=== PATIENT | female | born 1930 | race Hispanic/Latino ===

== ENCOUNTER 2017-03-04 13:02 | Emergency (ER) | payer MEDICARE ==
[2017-03-04 13:11] VITALS: TEMP 98
[2017-03-04 13:20] VITALS: RESP 14
--- NOTE | 2017-03-04 13:43 | ED PDOC ---
HPI: Hypertension/Hypotension Time Seen by Provider: 03/04/17 13:31 Chief Complaint (Nursing): High Blood Pressure Chief Complaint (Provider): high blood pressure History Per: Patient History/Exam Limitations: no limitations Onset/Duration Of Symptoms: Days Additional Complaint(s): Pt. with right hip for 1 week. Pain only on walking and putting weight on leg. Pt. pain free on lying down. Pt. had same 3 weeks ago along with dysuria, increased frequency and urgency of urination. She was given macrobid and dc. She felt better after and all symptoms went away. The hip pain has now returned. Pt. went to the urgent care clinic and they said her BP was high so they couldn't see her, sent to the ED. Pt. has no abd pain, numbness, tingles, back pain, weakness, headaches, dizziness, chest pain, dyspnea. No nausea, vomit, diarrhea. No injury. Past Medical History Reviewed: Nursing Documentation, Vital Signs Vital Signs: Last Vital Signs Temp 98 F 03/04/17 13:08 Pulse 68 03/04/17 13:20 Resp 14 03/04/17 13:20 BP 193/89 H 03/04/17 13:20 Pulse Ox 99 03/04/17 13:20 - Medical History PMH: HTN - Surgical History Surgical History: Tonsillectomy - Family History Family History: States: Unknown Family Hx - Living Arrangements Living Arrangements: With Family - Social History Current smoker - smoking cessation education provided: No Alcohol: None Drugs: Denies - Immunization History Hx Tetanus Toxoid Vaccination: No Hx Influenza Vaccination: No Hx Pneumococcal Vaccination: No - Home Medications Home Medications: Ambulatory Orders Medication Instructions Recorded Propranolol [Inderal] 40 mg PO DAILY 03/04/17 - Allergies Allergies/Adverse Reactions: Allergies Allergy/AdvReac Type Severity Reaction Status Date / Time Penicillins Allergy RASH Verified 03/04/17 13:07 Sulfa (Sulfonamide Allergy RASH Verified 03/04/17 13:07 Antibiotics) Review of Systems ROS Statement: Except As Marked, All Systems Reviewed And Found Negative Musculoskeletal: Positive for: Leg Pain Physical Exam - Reviewed Nursing Documentation Reviewed: Yes Vital Signs Reviewed: Yes - Physical Exam Appears: Positive for: Non-toxic, No Acute Distress Head Exam: Positive for: ATRAUMATIC, NORMAL INSPECTION, NORMOCEPHALIC Skin: Positive for: Normal Color, Warm, DRY Eye Exam: Positive for: EOMI, Normal appearance, PERRL ENT: Positive for: Normal ENT Inspection Neck: Positive for: Normal, Painless ROM Cardiovascular/Chest: Positive for: Regular Rate, Rhythm Respiratory: Positive for: CNT, Normal Breath Sounds Gastrointestinal/Abdominal: Positive for: Normal Exam, Bowel Sounds, Soft. Negative for: Tenderness Back: Positive for: Normal Inspection. Negative for: L CVA Tenderness, R CVA Tenderness Extremity: Positive for: Normal ROM (except mild pain on R hip external rotation ). Negative for: Tenderness, Pedal Edema, Calf Tenderness, Capillary Refill, Deformity, Swelling Neurologic/Psych: Positive for: Alert, Oriented. Negative for: Motor/Sensory Deficits (5/5 strength all extremities) - Laboratory Results Result Diagrams: 03/04/17 14:15 03/04/17 14:15 Interpretation Of Abn Labs: no acute - ECG ECG: Positive for: Interpreted By Me, Viewed By Me Interpretation Of Abn EKG: LVH; sinus O2 Sat by Pulse Oximetry: 99 Pulse Ox Interpretation: Normal - Radiology X-Ray: Interpreted by Me, Viewed By Me X-Ray Interpretation: No Acute Disease - Progress ED Course And Treament: 1456: Stable. AAOx3. BP improvement. Known high blood pressure with no symptoms. Fu with your pcp for further bp management. Ambulated with no issues. Tolerated PO. No dizziness. Disposition - Clinical Impression Clinical Impression: Chronic hypertension, Hip pain - Patient ED Disposition Is Patient to be Admitted: No - Disposition Referrals: [facility] [Outside] - 03/05/17 Disposition: Routine/Home Disposition Time: 15:01 Condition: STABLE Additional Instructions: Return if not better in 3 days. Instructions: Hip Pain (ED), Chronic Hypertension (ED) Forms: [employer] (Macedonian)
[2017-03-04 14:32] LABS: BASO # 0.1 K/uL (0.0-0.2); BASO % 1.3 % (0.0-2.0); EOS # 0.1 K/uL (0.0-0.7); EOS % 1.1 % (0.0-4.0); HEMATOCRIT 46.6 % (34.0-47.0); LYMPH % 26.8 % (20.0-40.0); MEAN CELL VOLUME 91.4 fl (81.0-99.0); MEAN CORPUSCULAR HEMOGLOBIN 30.1 pg (27.0-31.0); MEAN CORPUSCULAR HGB CONC 32.9 g/dL (33.0-37.0); MEAN PLATELET VOLUME 8.4 fl (7.2-11.7); MONO # 0.6 K/uL (0.0-0.8); MONO % 8.4 % (0.0-10.0); NEUT # 4.7 K/uL (1.8-7.0); NEUT % 62.4 % (50.0-75.0); NRBC % 0.2 % (0.0-0.0); RED CELL DISTRIBUTION WIDTH 13.9 % (11.5-14.5); WHITE BLOOD COUNT 7.6 K/uL (4.8-10.8)
[2017-03-04 14:45] LABS: ALB/GLOB RATIO 1.4 (1.0-2.1); ALKALINE PHOSPHATASE 64 U/L (38-126); ALT/SGPT 33 U/L (9-52); AST/SGOT 34 U/L (14-36); BILIRUBIN,TOTAL 0.6 mg/dl (0.2-1.3); BLOOD UREA NITROGEN 7 mg/dl (7-17); CALCIUM 9.4 mg/dL (8.4-10.2); CARBON DIOXIDE 25 mmol/L (22-30); CHLORIDE 105 mmol/L (98-107); GFR AFRICAN-AMERICAN > 60; GLUCOSE,RANDOM 96 mg/dL (65-105); SODIUM 138 mmol/l (132-148); TOTAL PROTEIN 6.8 G/DL (6.3-8.2)
[2017-03-04 14:56] VITALS: O2SAT 99
[2017-03-04 15:14] VITALS: BP 171/71; PULSE 74
--- NOTE | 2017-03-04 16:27 | RAD ---
Indication: Pain Right hip with pelvis Comparison: None available Findings: Partially imaged severe scoliosis of the lumbar spine convex to the right. No acute displaced fracture or dislocation identified. Sacroiliac joints appear intact. Mild constipation. Soft tissues appear unremarkable. No evidence of radiopaque foreign body. Impression: No acute displaced fracture or dislocation evident. If high clinical index of suspicion, suggest cross-sectional imaging for further evaluation. Otherwise, if symptoms persist or if there is continued clinical concern, x-ray follow-up in 7-10 days should be considered.
--- NOTE | 2017-03-04 23:35 | CARD ---
APPROVED REPORT EKG Measurement Heart [id number] <Conclusion> Sinus bradycardia Left axis deviation Minimal voltage criteria for LVH, may be normal variant Possible Anterior infarct, age undetermined Abnormal ECG
== END 2017-03-04 15:13 | disposition home or self-care (01) ==
LOC: H.ER 13:02
DX: I10 Essential (primary) hypertension (principal); M25.551 Pain in right hip; Z88.0 Allergy status to penicillin